=== PATIENT | male | born 1990 | race Caucasian/White ===

== ENCOUNTER 2018-07-01 09:51 | Emergency (ER) | payer SELFPAY ==
--- NOTE | 2018-07-01 10:24 | UC ---
Lower Extremity/Ankle HPI - HPI Summary HPI Summary: Has had L knee pain for 1 mo. along w/ swelling and limping. Does nayana fu and feels its becoming worse. Continues to limp. denies ivdu, redness, fever, diarrhea, dysuria. - History of Current Complaint Chief Complaint: UCGeneralIllness Stated Complaint: LEG INJURY Time Seen by Provider: 07/01/18 10:16 Hx Obtained From: Patient Pain Intensity: 9 Pain Scale Used: 0-10 Numeric - Allergies/Home Medications Allergies/Adverse Reactions: Allergies Allergy/AdvReac Type Severity Reaction Status Date / Time No Known Allergies Allergy Verified 07/01/18 10:11 PMH/Surg Hx/FS Hx/Imm Hx Previously Healthy: Yes - Surgical History Surgical History: None - Social History Alcohol Use: None Substance Use Type: None Smoking Status (MU): Never Smoked Tobacco Review of Systems All Other Systems Reviewed And Are Negative: Yes Constitutional: Positive: Negative. Negative: Fever Skin: Negative: Bruising ENT: Negative: Sore Throat Gastrointestinal: Negative: Diarrhea Genitourinary: Negative: Dysuria Musculoskeletal: Positive: Arthralgia - r knee, Decreased ROM, Edema, Other: - + limping Neurological: Negative: Weakness, Paresthesia, Numbness Physical Exam Triage Information Reviewed: Yes Appearance: Well-Appearing Vital Signs: Initial Vital Signs Temp 99.8 F 07/01/18 10:07 Pulse 81 07/01/18 10:07 Resp 18 07/01/18 10:07 BP 99/64 07/01/18 10:07 Pulse Ox 100 07/01/18 10:07 Vital Signs Reviewed: Yes Respiratory Exam: Normal Cardiovascular Exam: Normal Musculoskeletal: Positive: Strength Intact, ROM Limited @ - R knee, Edema @ - Significant at R knee, no redness or bruising. Neurological: Positive: Alert Skin: Positive: Other - no bruising noted at R knee. Diagnostics - Radiology No standard instances Radiology Interpretation Completed By: Radiologist Summary of Radiographic Findings: IMPRESSION: Mild to moderate suprapatellar left knee joint effusion in this otherwise normal radiograph. If the patient's symptoms persist, follow-up imaging is recommended. Lower Extremity Course/Dx - Course Course Of Treatment: 1 mo hx of L knee pain, swelling, limping which is worsening. On exam he is afebrile , significant knee swelling w/ no redness, decr. ROM, limping, no bogginess. Suspect ligamental damage from his sport but this may need an MRI. XRAY is first step and that just shows significant for soft tissue swelling. We will r/o gc/chlam. Reassuring that there were no GI symptoms. He will be following up w/ pcp for further eval. - Differential Dx/Diagnosis Differential Diagnosis/HQI/PQRI: Arthritis, Bursitis, Cellulitis, Dislocation, Fracture (Closed), Septic Arthritis, Tendonitis, Tenosynovitis Provider Diagnosis: Swelling of knee joint, left Discharge - Sign-Out/Discharge Documenting (check all that apply): Patient Departure All imaging exams completed and their final reports reviewed: No Studies - Discharge Plan Condition: Good Disposition: HOME Prescriptions: Ibuprofen [Ibu] 600 mg PO TID 10 Days #30 tablet Patient Education Materials: Swollen Knee Joint (ED) Forms: *Work Release Referrals: No Primary Care Phys,NOPCP [Primary Care Provider] - Additional Instructions: Your xray was normal but you have significant knee swelling. I suspect you injured it during Nayana but I am sending out some tests to make sure there isn 't a bacteria. Should it become red or you develop fever please go to ER. You may follow up with your new pcp at [facility] as they are taking new patients. You may start ibuprofen tomorrow. - Billing Disposition and Condition Condition: GOOD Disposition: Home
[2018-07-01] MEDS ORDERED: Ketorolac INJ* 30 MG/ML 1 ML VIAL IV PUSH ONE (11:27)
[2018-07-01] MEDS ORDERED: Ketorolac INJ* 30 MG/ML 1 ML VIAL IM ONE (11:32)
== END 2018-07-01 12:50 | disposition home or self-care (01) ==
LOC: UCEAST 09:51
DX: M25.462 Effusion, left knee (principal)
CPT/HCPCS: 87491; 87591; 96372; 99202; G0463; J1885